=== PATIENT | female | born 1990 | race Caucasian/White ===

== ENCOUNTER 2022-09-13 15:06 | Outpatient (CLI) | payer MEDICAID, SELFPAY ==
[2022-09-13 15:24] VITALS: BP 122/84; PULSE 79; TEMP 36.7
[2022-09-13 15:28] VITALS: BP 122/84; PULSE 79
[2022-09-13 15:39] LABS: HCT 34.6 % (36.0-46.0); HGB 11.9 g/dL (11.2-15.7); MCHC 34.4 % (32.0-36.0); MCV 90 fL (80-95); MPV 10.9 fL (8.0-11.0); Platelet Count 238 10^3/uL (130-400); RBC 3.84 10^6/uL (3.93-5.22); RDW 13.1 % (11.7-14.6); RDW-SD 42.6 fL; WBC 10.15 10^3/uL (4.4-10.8)
[2022-09-13 15:56] LABS: ALT 17 U/L (14-59); AST 20 U/L (15-37); Albumin 2.6 g/dL (3.4-5.0); Alkaline Phosphatase 149 U/L (46-116); Anion Gap 11.6 mmol/L (3-11); BUN 6 mg/dL (7-18); Bilirubin, Total 0.2 mg/dL (0.2-1.0); CO2 21.4 mmol/L (21.0-32.0); CREATININE 0.5 mg/dL (0.55-1.02); Chloride 104 mmol/L (98-107); Estimated GFR 129.32 (mL/min/1.73m2); Glucose 70 mg/dL (74-106); Potassium 3.7 mmol/L (3.5-5.1); Sodium 137 mmol/L (136-145); Total Protein 6.6 g/dL (6.4-8.2); Uric Acid 5.3 mg/dL (2.6-6.0)
[2022-09-13 16:04] VITALS: BP 133/89; PULSE 76
--- NOTE | 2022-09-13 16:50 | W.OBNST ---
Date of service: 09/13/22 Time of Service: 16:50 NST Evaluation Reason for NST Reasons for Nonstress Test: GESTATIONAL HYPERTENSION Gestational Age Gestational Age in Weeks and Days: 39 Weeks and 1Days Test and Monitor Explained Test/Monitor Explained: Test Explained, Monitor Explained and Patient Verbalized Understanding Vital Signs Blood Pressure: 122/84 Pulse: 79 Temperature: 98.1 F NST Information Date on Monitor: 09/13/22 Time on Monitor: 15:28 Date off Monitor: 09/13/22 Time off Monitor: 16:20 Total Time on Monitor: 52 NST Interventions: None NST Evaluation Patient States Movement: Present FHR Baseline: 135 Variability: Moderate 6-25 bpm Accelerations: 15x15 NST Results: Reactive Note N/A NST Note Note: Elevated BP at the office visit today. trace to 1+ edema. To the Center for NST and BP checks. BP 120-130/86-89. preeclampsia labs WNL. trace of urine on dipstick. Instructed to return 09/16 for repeat NST and BP. Denies headache or epigastric pain. Signs of preeclampsia reviewed. NST Reviewed and Verified by: Sherin Morris
[2022-09-13 16:52] VITALS: BP 122/84; PULSE 79; TEMP 36.7
== END 2022-09-13 16:30 ==
LOC: BCD 15:10 → OBS 15:20
PROVIDERS: PCP Nurse Practitioner Family; Visit Provider Advanced Practice Midwife
DX: O13.3 Gestational [pregnancy-induced] hypertension without significant proteinuria, third trimester (principal); Z3A.39 39 weeks gestation of pregnancy
CPT/HCPCS: 59025; 80053; 85027; 86850; 86900; 86901; 84550

== ENCOUNTER 2022-09-13 18:36 | Outpatient (REF) | payer MEDICAID, SELFPAY ==
[2022-09-13 17:08] LABS: COMMENT (LAB VIEW ONLY) 100.63 mg/dL; PROTEIN 28.7 mg/dL; Prot/Crea Ur Ratio 0.28
[2022-09-13 17:13] LABS: *AMPHETAMINES SCREEN URINE Negative (Negative); *BARBITURATES SCREEN URINE Negative (Negative); *BENZODIAZEPINES SCREEN URINE Negative (Negative); Cannabinoids THC Negative (Negative); Cocaine Screen,Urine Negative (Negative); METHADONE URINE SCREEN Negative (Negative); OPIATES URINE SCREEN Negative (Negative)
[2022-09-13 17:17] LABS: Tricyclic Antidepressants Negative (Negative)
== END 2022-09-13 18:37 | disposition home or self-care (01) ==
LOC: LBN 18:36
PROVIDERS: PCP Nurse Practitioner Family; Visit Provider Advanced Practice Midwife
DX: O13.9 Gestational [pregnancy-induced] hypertension without significant proteinuria, unspecified trimester (principal); O99.323 Drug use complicating pregnancy, third trimester; F12.90 Cannabis use, unspecified, uncomplicated; Z3A.39 39 weeks gestation of pregnancy
CPT/HCPCS: 80307; 82565; 84156

== ENCOUNTER 2022-09-16 08:01 | Outpatient (CLI) | payer MEDICAID, SELFPAY ==
[2022-09-16 11:19] VITALS: BP 120/93; PULSE 86
[2022-09-16 11:42] LABS: HCT 34.3 % (36.0-46.0); HGB 11.5 g/dL (11.2-15.7); MCH 30.4 pg (27.0-33.0); MCHC 33.5 % (32.0-36.0); MCV 91 fL (80-95); MPV 10.5 fL (8.0-11.0); Platelet Count 219 10^3/uL (130-400); RBC 3.78 10^6/uL (3.93-5.22); RDW 13.1 % (11.7-14.6); RDW-SD 42.9 fL; WBC 8.65 10^3/uL (4.4-10.8)
[2022-09-16 11:57] VITALS: BP 123/86; PULSE 86
[2022-09-16 12:00] LABS: COMMENT (LAB VIEW ONLY) 41.33 mg/dL; PROTEIN 16.2 mg/dL; Prot/Crea Ur Ratio 0.39
[2022-09-16 12:06] LABS: ALT 15 U/L (14-59); AST 17 U/L (15-37); Albumin 2.4 g/dL (3.4-5.0); Alkaline Phosphatase 144 U/L (46-116); Anion Gap 9.9 mmol/L (3-11); BUN 6 mg/dL (7-18); Bilirubin, Total 0.2 mg/dL (0.2-1.0); CO2 23.1 mmol/L (21.0-32.0); CREATININE 0.5 mg/dL (0.55-1.02); Calcium 8.8 mg/dL (8.5-10.1); Chloride 105 mmol/L (98-107); Estimated GFR 129.32 (mL/min/1.73m2); Glucose 83 mg/dL (74-106); Potassium 4.1 mmol/L (3.5-5.1); Sodium 138 mmol/L (136-145); Total Protein 6.3 g/dL (6.4-8.2)
[2022-09-16 12:27] VITALS: BP 120/93; PULSE 86; TEMP 36.6
[2022-09-16 12:29] LABS: Uric Acid 5.3 mg/dL (2.6-6.0)
--- NOTE | 2022-09-16 12:31 | W.OBNST ---
Date of service: 09/16/22 Time of Service: 12:31 NST Evaluation Reason for NST Reasons for Nonstress Test: GESTATIONAL HYPERTENSION Gestational Age Gestational Age in Weeks and Days: 39 Weeks and 5Days Test and Monitor Explained Test/Monitor Explained: Test Explained, Monitor Explained and Patient Verbalized Understanding Vital Signs Blood Pressure: 120/93 Pulse: 86 Temperature: 97.9 F Urine Results Urine Protein: Positive Urine Ketones: Positive Urine Glucose: Negative Urine Blood: Negative NST Information Date on Monitor: 09/16/22 Time on Monitor: 11:03 Date off Monitor: 09/16/22 Time off Monitor: 12:08 Total Time on Monitor: 65 NST Interventions: PO Hydration and Notify Provider Contraction Frequency: Occasional NST Evaluation Patient States Movement: Present FHR Baseline: 150 Variability: Moderate 6-25 bpm Accelerations: 15x15 Decelerations: None NST Results: Reactive Note N/A NST Note Note: Janeth is here for BP check and NST. BP was elevated today and preeclampsia labs show elevated protein creatinene ratio of 0.38. IOL offered and Janeth agrees and that was scheduled for this evening, plan reviewed with Dr. Aquino NST Reviewed and Verified by: Sherin Morris
[2022-09-16 12:33] VITALS: BP 120/93; PULSE 86; TEMP 36.6
== END 2022-09-16 12:25 | disposition home or self-care (01) ==
LOC: BCD 08:02 → OBS 11:00
PROVIDERS: PCP Nurse Practitioner Family; Visit Provider Advanced Practice Midwife
DX: O13.3 Gestational [pregnancy-induced] hypertension without significant proteinuria, third trimester (principal); Z3A.39 39 weeks gestation of pregnancy
CPT/HCPCS: 59025; 36415; 80053; 85027; 82565; 84156; 84550

== ENCOUNTER 2022-09-16 18:44 | Inpatient (IN) | payer MEDICAID, SELFPAY ==
--- OUTSIDE RECORDS SUMMARY | 2022-09-16 14:29 | XMS_ITS | CCD ---
Author Name Unknown Address [address] [place] [address] [id number] Organization Unknown Address [address] [place] [address] [id number] Care Team Providers Care Salvage Mechanic Name Role Phone DAVID ROWLEY Attending Physician [phone] UNLISTED REQUESTED, PROVIDER - Er Physician 1 0 Vital Signs Unknown or Not Available. Allergies Allergy Code Allergy Type Reaction Status No Known Drug Allergies 0 No known drug allergies Active Procedures Unknown or Not Available. History of Immunizations Unknown or Not Available. Problems Unknown or Not Available. Results Unknown or Not Available. Active Medications Medication Code Dose Units Frequency Route Modificatio n Start Date/Time Metoclopramide 10MG Oral Tablet 388966 1 TABLET EVERY 8 HOURS ORAL 03/06/2022 15:17 Prescription Detail TAKE 1 TABLET ORAL EVERY 8 HOURS Medications Administered During Visit Unknown or Not Available. Encounters Unknown or Not Available. Social History Unknown or Not Available. Patient Decision Aids Unknown or Not Available. Discharge Instructions You were admitted to [facility] on 07/16/2022 21:13 You were discharged from [facility] on 07/16/2022 21:13 Should you have any questions prior to discharge, please contact a member of your healthcare team. If you have left the hospital and have any questions, please contact your primary care physician. Chief Complaint and Reason For Visit Chief Complaint Date of Onset RT HIP PAIN GENERATING INTO STOMACH 8MTH 07/16/2022 Function Status Unknown or Not Available. Plan of Care Unknown or Not Available. Referral/Transition of Care Unknown or Not Available.
--- OUTSIDE RECORDS SUMMARY | 2022-09-16 14:30 | XMS_ITS | CCD ---
Author Name Unknown Address [address] [place] [address] [id number] Organization Unknown Address [address] [place] [address] [phone] Care Team Providers Care Director Of Accounts Payable Name Role Phone October Attending Physician [phone] Vital Signs Unknown or Not Available. Allergies Allergy Code Allergy Type Reaction Status No Known Drug Allergies 0 No known drug allergies Active Procedures Unknown or Not Available. History of Immunizations Unknown or Not Available. Problems Unknown or Not Available. Results CULT URINE CULTURE* - [facility] Date/Time: 07/16/2022 16:05 Test Name Code Test Result Test Units Test Ref Rang e COLLECTION MODE: 25288-4 CLEAN CATCH N/A Active Medications Medication Code Dose Units Frequency Route Modificatio n Start Date/Time Metoclopramide 10MG Oral Tablet 006116 1 TABLET EVERY 8 HOURS ORAL 03/06/2022 15:17 Prescription Detail TAKE 1 TABLET ORAL EVERY 8 HOURS Medications Administered During Visit Unknown or Not Available. Encounters Encounter Diagnosis Diagnosis Code Start Date Other specified re lated conditions, third trimester [id number] 07/16/2022 Social History Unknown or Not Available. Patient Decision Aids Unknown or Not Available. Discharge Instructions You were admitted to [facility] on 07/16/2022 15:23 with a principal diagnosis of Other specified related conditions, third trimester You had the following tests done:CULT URINE CULTURE* You were discharged from [facility] on 07/16/2022 16:10 Should you have any questions prior to discharge, please contact a member of your healthcare team. If you have left the hospital and have any questions, please contact your primary care physician. Chief Complaint and Reason For Visit Unknown or Not Available. Function Status Unknown or Not Available. Plan of Care Unknown or Not Available. Referral/Transition of Care Unknown or Not Available.
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
[2022-09-16 21:32] VITALS: BP 136/95; PULSE 96
[2022-09-16 21:34] VITALS: BP 136/95; PULSE 96; RESP 16; TEMP 36.8; O2SAT 98
[2022-09-16 21:46] LABS: Source Nasal/Nares
[2022-09-16 21:55] LABS: HCT 34.8 % (36.0-46.0); HGB 11.8 g/dL (11.2-15.7); MCH 30.6 pg (27.0-33.0); MCHC 33.9 % (32.0-36.0); MCV 90 fL (80-95); MPV 11.2 fL (8.0-11.0); Platelet Count 249 10^3/uL (130-400); RBC 3.86 10^6/uL (3.93-5.22); RDW 13.1 % (11.7-14.6); RDW-SD 42.5 fL; WBC 10.86 10^3/uL (4.4-10.8)
[2022-09-16 22:16] LABS: COVID-19 PCR Negative (Negative)
[2022-09-16] MEDS: miSOPROStol 25 MCG TAB PO (22:32)
[2022-09-16 22:53] VITALS: BP 121/80; PULSE 89
[2022-09-16] MEDS: Zolpidem 5 MG TAB 10 MG PO (22:54)
[2022-09-16 22:59] LABS: ALT 18 U/L (14-59); AST 21 U/L (15-37); Albumin 2.7 g/dL (3.4-5.0); Alkaline Phosphatase 154 U/L (46-116); BUN 6 mg/dL (7-18); Bilirubin, Total 0.2 mg/dL (0.2-1.0); CREATININE 0.5 mg/dL (0.55-1.02); Chloride 103 mmol/L (98-107); Estimated GFR 129.32 (mL/min/1.73m2); Glucose 72 mg/dL (74-106); Sodium 137 mmol/L (136-145); Total Protein 6.3 g/dL (6.4-8.2)
[2022-09-17] VITALS (159 sets, daily range): BP systolic 101–133; BP diastolic 56–97; PULSE 75–125; TEMP 36.7; O2SAT 95–99; BMI 25.9
[2022-09-17] MEDS: miSOPROStol 25 MCG TAB PO ×2 (03:31→07:52)
--- NOTE | 2022-09-17 05:41 | W.PM.OBNL1 ---
Date of service: 09/17/22 Time of Service: 05:41 Contractions Monitor Mode: External Contraction Frequency(min): irreg Contraction Duration(sec): varied Intensity: Mild Fetus A Monitor: External (US) Heart Rate Baseline: 140 Presentation: Vertex Variability: Moderate (6-25 BPM) Categories: Category I Accelerations: 15 X 15 Decelerations: None Assessment and Plan Assessment and plan (1) Encounter for induction of labor: Status: Acute Assessment and plan: Rest encouraged. Will hold next dose due to census on the unit. Continue to assess BP and labor progress. (2) Preeclampsia: Status: Acute Objective Abnormal lab results 09/16/22 09/16/22 Range/Units 21:35 21:35 WBC 10.86 H (4.4-10.8) 10^3/uL RBC 3.86 L (3.93-5.22) 10^6/uL Hct 34.8 L (36.0-46.0) % MPV 11.2 H (8.0-11.0) fL Anion Gap 12.0 H (3-11) mmol/L BUN 6 L (7-18) mg/dL Creatinine 0.5 L (0.55-1.02) mg/dL Glucose 72 L (74-106) mg/dL Alkaline Phosphatase 154 H (46-116) U/L Total Protein 6.3 L (6.4-8.2) g/dL Albumin 2.7 L (3.4-5.0) g/dL Temp Pulse Resp BP Pulse Ox 98.3 F 92 H 16 103/71 98 09/16/22 21:34 09/17/22 05:28 09/16/22 21:34 09/17/22 05:28 09/16/22 21:34 Laboratory Results WBC 10.86 10^3/uL (4.4-10.8) H 09/16/22 21:35 RBC 3.86 10^6/uL (3.93-5.22) L 09/16/22 21:35 Hgb 11.8 g/dL (11.2-15.7) 09/16/22 21:35 Hct 34.8 % (36.0-46.0) L 09/16/22 21:35 MCV 90 fL (80-95) 09/16/22 21:35 MCH 30.6 pg (27.0-33.0) 09/16/22 21:35 MCHC 33.9 % (32.0-36.0) 09/16/22 21:35 RDW 13.1 % (11.7-14.6) 09/16/22 21:35 Plt Count 249 10^3/uL (130-400) 09/16/22 21:35 MPV 11.2 fL (8.0-11.0) H 09/16/22 21:35 Sodium 137 mmol/L (136-145) 09/16/22 21:35 Potassium 4.0 mmol/L (3.5-5.1) 09/16/22 21:35 Chloride 103 mmol/L (98-107) 09/16/22 21:35 Carbon Dioxide 22.0 mmol/L (21.0-32.0) 09/16/22 21:35 Anion Gap 12.0 mmol/L (3-11) H 09/16/22 21:35 BUN 6 mg/dL (7-18) L 09/16/22 21:35 Creatinine 0.5 mg/dL (0.55-1.02) L 09/16/22 21:35 Est GFR (CKD-EPI 2020) 129.32 (mL/min/1.73m2) 09/16/22 21:35 Glucose 72 mg/dL (74-106) L 09/16/22 21:35 Calcium 9.0 mg/dL (8.5-10.1) 09/16/22 21:35 Total Bilirubin 0.2 mg/dL (0.2-1.0) 09/16/22 21:35 AST 21 U/L (15-37) 09/16/22 21:35 ALT 18 U/L (14-59) 09/16/22 21:35 Alkaline Phosphatase 154 U/L (46-116) H 09/16/22 21:35 Total Protein 6.3 g/dL (6.4-8.2) L 09/16/22 21:35 Albumin 2.7 g/dL (3.4-5.0) L 09/16/22 21:35 COVID-19 Source Nasal/Nares 09/16/22 21:30 SARS-CoV-2 (PCR) Negative (Negative) 09/16/22 21:30 Patient ABO/Rh O Positive 09/16/22 21:35 Antibody Screen NEGATIVE 09/16/22 21:35 Subjective Interval history since last seen: Janeth has received 2 doses of misoprostol and has been sleeping well after taking ambien. BP 103/71 Results Hemoglobin/Hematocrit: Hgb 11.8 g/dL (11.2-15.7) 09/16/22 21:35 Hct 34.8 % (36.0-46.0) L 09/16/22 21:35 Abnormal Lab Findings: Abnormal Labs 09/16/22 09/16/22 21:35 21:35 WBC 10.86 H RBC 3.86 L Hct 34.8 L MPV 11.2 H Anion Gap 12.0 H BUN 6 L Creatinine 0.5 L Glucose 72 L Alkaline Phosphatase 154 H Total Protein 6.3 L Albumin 2.7 L
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
--- NOTE | 2022-09-17 15:39 | W.POCUS ---
Pocus Exam Limited OB Exam DATE OF EXAM:: 09/17/22 TIME OF EXAM:: 15:40 PROVIDER THAT PERFORMED THE STUDY: Sherin Morris IS THIS A REPEAT EXAM DURING THIS ENCOUNTER: No Type of Exam: Pelvic OB Trans Abdominal (confirm presentation) REASON FOR EXAM: other (presentation) indication: Presentation Exam Complete.
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
[2022-09-17] MEDS: Lactated Ringers 500 ML IV (15:55)
[2022-09-17] MEDS: Bupivacaine 0.25% Pres-Free 10 ML VIAL EP (16:06)
[2022-09-17] MEDS: fentaNYL 100 MCG/2 ML VIAL EP (16:07)
[2022-09-17] MEDS: FentaNYL/ROPIvacaine 2 mcg/ml and 0.1% 200 ML CADD Cassette EP (16:07)
--- NOTE | 2022-09-17 16:27 | W.ANESNEU ---
Epidural/Spinal Catheter Date Performed: 09/17/22 Procedure Start: 16:00 Procedure Stop: 16:37 Requesting Provider: Sherin Morris Procedure Location: Obstetrics Reason Performed: Labor Epidural Standard Monitors Applied: Blood Pressure, SpO2 and See EMR for corresponding vital signs Patient Position: Sitting Sedation Given (Indicate Dose Given): No Sedation given Patient Mental Status: Awake Sterility: Hand Hygiene, Surgical Cap, Surgical Mask, Sterile Gloves, Sterile Drape/Sheet and Chlorhexidine Procedure Location: L3-L4 Interspace Epidural Needle: Tuohy 18 Gauge Needle Length: 3.5 Inch Needle Approach: Midline Epidural Procedure: Skin Prepped, 1% Lidocaine to skin and subcutaneous tissue with 25G needle, Tuohy Needle placed, BRYAN to Saline Used, Epidural Catheter Placed, Negative Heme, Negative CSF Flow and Tuohy Needle Removed Catheter Placed?: Catheter Placed Test Dose (Indicate Dose Given): 3ml 1.5% Lidocaine with 1:200K Epinephrine Given and Negative Test Dose Loss of Resistance Depth (cm): 8 Catheter depth at skin (cm): 13 Dressing: [place] Dressing Placed and Mastisol Used Epidural Provider Bolus (Indicate Dose Given): Total bolus dose given in 3-5 ml divided doses and Total Bupivacaine 0.25% Given (ml) Dose:: 5 ml Additives (Indicate Dose Given ): Fentanyl PF Dose:: 100 mcg Infusion Medication: Medication Infusion Began Medication Infusion: Ropivacaine 0.1% with Fentanyl 2mcg/ml Maintenance Infusion Rate (ml/hour): 10 PCEA Bolus Dose (ml): 5 Post Procedure Pain score (0-10): 1 Block Level: N/A Paresthesia: None Ultrasound: Not Used Number of Attempts (See previous attempts in note section): 1 Procedure Tolerated: No Complications and Patient tolerated well Procedure Outcome: Successful Performed By: Hope Ruiz
[2022-09-17] MEDS: Lactated Ringers 1,000 ML 125 ML IV (16:29)
[2022-09-17] MEDS: miSOPROStol 50 MCG TAB PO (16:45)
--- NOTE | 2022-09-17 20:59 | W.PM.OBNL1 ---
Date of service: 09/17/22 Time of Service: 21:00 Pelvic Exam Dilation: 1 Effacement (%): 50 station: -1 Cervix Position: posterior Consistency: soft BISHOPS Score(Cervical Ripeness Score): 6 Contractions Monitor Mode: External Contraction Frequency(min): every 5 Contraction Duration(sec): 60 Intensity: Mild/Moderate Fetus A Monitor: External (US) Heart Rate Baseline: 130 Presentation: Vertex Variability: Moderate (6-25 BPM) Categories: Category I Accelerations: 15 X 15 Decelerations: None Amniotic Membrane Status: Intact Assessment and Plan Assessment and plan (1) Encounter for induction of labor: Status: Acute Assessment and plan: wyatt catheter placed an 300 cc clear urine out. will send urine for protein/creatinene ratio. Will insert cervidil for cervical ripening tonight and remove in the morning. Repeat preeclampsia labs ordered. Anticipate . rest encouraged. Objective Abnormal lab results 09/16/22 09/16/22 Range/Units 21:35 21:35 WBC 10.86 H (4.4-10.8) 10^3/uL RBC 3.86 L (3.93-5.22) 10^6/uL Hct 34.8 L (36.0-46.0) % MPV 11.2 H (8.0-11.0) fL Anion Gap 12.0 H (3-11) mmol/L BUN 6 L (7-18) mg/dL Creatinine 0.5 L (0.55-1.02) mg/dL Glucose 72 L (74-106) mg/dL Alkaline Phosphatase 154 H (46-116) U/L Total Protein 6.3 L (6.4-8.2) g/dL Albumin 2.7 L (3.4-5.0) g/dL Temp Pulse Resp BP Pulse Ox 98.0 F 114 H 16 127/82 97 09/17/22 20:29 09/17/22 20:59 09/16/22 21:34 09/17/22 20:23 09/17/22 20:56 Laboratory Results WBC 10.86 10^3/uL (4.4-10.8) H 09/16/22 21:35 RBC 3.86 10^6/uL (3.93-5.22) L 09/16/22 21:35 Hgb 11.8 g/dL (11.2-15.7) 09/16/22 21:35 Hct 34.8 % (36.0-46.0) L 09/16/22 21:35 MCV 90 fL (80-95) 09/16/22 21:35 MCH 30.6 pg (27.0-33.0) 09/16/22 21:35 MCHC 33.9 % (32.0-36.0) 09/16/22 21:35 RDW 13.1 % (11.7-14.6) 09/16/22 21:35 Plt Count 249 10^3/uL (130-400) 09/16/22 21:35 MPV 11.2 fL (8.0-11.0) H 09/16/22 21:35 Sodium 137 mmol/L (136-145) 09/16/22 21:35 Potassium 4.0 mmol/L (3.5-5.1) 09/16/22 21:35 Chloride 103 mmol/L (98-107) 09/16/22 21:35 Carbon Dioxide 22.0 mmol/L (21.0-32.0) 09/16/22 21:35 Anion Gap 12.0 mmol/L (3-11) H 09/16/22 21:35 BUN 6 mg/dL (7-18) L 09/16/22 21:35 Creatinine 0.5 mg/dL (0.55-1.02) L 09/16/22 21:35 Est GFR (CKD-EPI 2020) 129.32 (mL/min/1.73m2) 09/16/22 21:35 Glucose 72 mg/dL (74-106) L 09/16/22 21:35 Calcium 9.0 mg/dL (8.5-10.1) 09/16/22 21:35 Total Bilirubin 0.2 mg/dL (0.2-1.0) 09/16/22 21:35 AST 21 U/L (15-37) 09/16/22 21:35 ALT 18 U/L (14-59) 09/16/22 21:35 Alkaline Phosphatase 154 U/L (46-116) H 09/16/22 21:35 Total Protein 6.3 g/dL (6.4-8.2) L 09/16/22 21:35 Albumin 2.7 g/dL (3.4-5.0) L 09/16/22 21:35 COVID-19 Source Nasal/Nares 09/16/22 21:30 SARS-CoV-2 (PCR) Negative (Negative) 09/16/22 21:30 Patient ABO/Rh O Positive 09/16/22 21:35 Antibody Screen NEGATIVE 09/16/22 21:35 Subjective Interval history since last seen: Plan for early epidural reviewed with Dr Aquino who agreed. Janeth reported pain was 7 on the pain scale when epidural placed. Janeth received an epidural and rested well. Maternal pulse 90-121 after waking from a nap. BP 127/82 Results Hemoglobin/Hematocrit: Hgb 11.8 g/dL (11.2-15.7) 09/16/22 21:35 Hct 34.8 % (36.0-46.0) L 09/16/22 21:35 Abnormal Lab Findings: Abnormal Labs 09/16/22 09/16/22 21:35 21:35 WBC 10.86 H RBC 3.86 L Hct 34.8 L MPV 11.2 H Anion Gap 12.0 H BUN 6 L Creatinine 0.5 L Glucose 72 L Alkaline Phosphatase 154 H Total Protein 6.3 L Albumin 2.7 L
[2022-09-17] MEDS: Dinoprostone-CERVICAL 10 MG VSUPP VG (21:27)
[2022-09-17 21:33] LABS: HCT 32.4 % (36.0-46.0); HGB 11.1 g/dL (11.2-15.7); MCH 31.2 pg (27.0-33.0); MCHC 34.3 % (32.0-36.0); MCV 91 fL (80-95); MPV 11.2 fL (8.0-11.0); Platelet Count 221 10^3/uL (130-400); RBC 3.56 10^6/uL (3.93-5.22); RDW 13.1 % (11.7-14.6); RDW-SD 43.2 fL; WBC 7.96 10^3/uL (4.4-10.8)
[2022-09-17 21:43] LABS: COMMENT (LAB VIEW ONLY) 116.98 mg/dL; PROTEIN 31.9 mg/dL; Prot/Crea Ur Ratio 0.27
[2022-09-17 21:44] LABS: ALT 18 U/L (14-59); AST 17 U/L (15-37); Albumin 2.2 g/dL (3.4-5.0); Alkaline Phosphatase 137 U/L (46-116); Anion Gap 10.5 mmol/L (3-11); BUN 9 mg/dL (7-18); Bilirubin, Total 0.2 mg/dL (0.2-1.0); CO2 23.5 mmol/L (21.0-32.0); CREATININE 0.6 mg/dL (0.55-1.02); Calcium 9.1 mg/dL (8.5-10.1); Chloride 104 mmol/L (98-107); Estimated GFR 123.76 (mL/min/1.73m2); Glucose 101 mg/dL (74-106); Potassium 3.7 mmol/L (3.5-5.1); Sodium 138 mmol/L (136-145); Uric Acid 4.7 mg/dL (2.6-6.0)
[2022-09-17] MEDS: Lactated Ringers 1,000 ML 30 ML IV (22:16)
[2022-09-18] VITALS (465 sets, daily range): BP systolic 98–133; BP diastolic 55–103; PULSE 0–143; RESP 18; TEMP 36.7–37.1; O2SAT 92–99
[2022-09-18] MEDS: Zolpidem 5 MG TAB 10 MG PO (01:33)
[2022-09-18] MEDS: Ondansetron 4 MG/2 ML VIAL IVP ×2 (08:38→15:13)
[2022-09-18] MEDS: Lactated Ringers 1,000 ML 125 ML IV (08:39)
--- NOTE | 2022-09-18 10:02 | W.PM.OBNL1 ---
Date of service: 09/18/22 Time of Service: 10:02 Pelvic Exam Dilation: 2 Effacement (%): 50 station: -2 Cervix Position: posterior Consistency: soft BISHOPS Score(Cervical Ripeness Score): 6 Vaginal Exam Presentation: Vertex Contractions Monitor Mode: External Contraction Frequency(min): every 3-5 Contraction Duration(sec): 60 Intensity: Mild/Moderate Fetus A Monitor: External (US) Heart Rate Baseline: 130 Presentation: Vertex Variability: Moderate (6-25 BPM) Categories: Category I Accelerations: 15 X 15 Decelerations: None and Early Assessment and Plan Assessment and plan (1) Group B streptococcal carriage complicating : Status: Acute Assessment and plan: will start Penicillin for GBS prophylaxis (2) Encounter for induction of labor: Status: Acute Assessment and plan: Will start pitocin augmentation per protocol. zofran given IV with good effect for nausea. (3) Gestational hypertension: Status: Acute Assessment and plan: Continue to monitor BP readings and consider repeat labs this evening. Objective Abnormal lab results 09/17/22 09/17/22 Range/Units 21:12 21:12 RBC 3.56 L (3.93-5.22) 10^6/uL Hgb 11.1 L (11.2-15.7) g/dL Hct 32.4 L (36.0-46.0) % MPV 11.2 H (8.0-11.0) fL Alkaline Phosphatase 137 H (46-116) U/L Total Protein 6.0 L (6.4-8.2) g/dL Albumin 2.2 L (3.4-5.0) g/dL Temp Pulse Resp BP Pulse Ox 98.8 F 99 H 18 118/74 98 09/18/22 09:57 09/18/22 09:59 09/18/22 09:57 09/18/22 09:57 09/18/22 09:57 Laboratory Results WBC 7.96 10^3/uL (4.4-10.8) 09/17/22 21:12 RBC 3.56 10^6/uL (3.93-5.22) L 09/17/22 21:12 Hgb 11.1 g/dL (11.2-15.7) L 09/17/22 21:12 Hct 32.4 % (36.0-46.0) L 09/17/22 21:12 MCV 91 fL (80-95) 09/17/22 21:12 MCH 31.2 pg (27.0-33.0) 09/17/22 21: MCHC 34.3 % (32.0-36.0) 09/17/22 21:12 RDW 13.1 % (11.7-14.6) 09/17/22 21:12 Plt Count 221 10^3/uL (130-400) 09/17/22 21:12 MPV 11.2 fL (8.0-11.0) H 09/17/22 21:12 Sodium 138 mmol/L (136-145) 09/17/22 21:12 Potassium 3.7 mmol/L (3.5-5.1) 09/17/22 21: Chloride 104 mmol/L (98-107) 09/17/22 21: Carbon Dioxide 23.5 mmol/L (21.0-32.0) 09/17/22 21:12 Anion Gap 10.5 mmol/L (3-11) 09/17/22 21:12 BUN 9 mg/dL (7-18) 09/17/22 21:12 Creatinine 0.6 mg/dL (0.55-1.02) 09/17/22 21:12 Est GFR (CKD-EPI 2020) 123.76 (mL/min/1.73m2) 09/17/22 21:12 Glucose 101 mg/dL (74-106) 09/17/22 21:12 Uric Acid 4.7 mg/dL (2.6-6.0) 09/17/22 21:12 Calcium 9.1 mg/dL (8.5-10.1) 09/17/22 21:12 Total Bilirubin 0.2 mg/dL (0.2-1.0) 09/17/22 21:12 AST 17 U/L (15-37) 09/17/22 21:12 ALT 18 U/L (14-59) 09/17/22 21:12 Alkaline Phosphatase 137 U/L (46-116) H 09/17/22 21:12 Total Protein 6.0 g/dL (6.4-8.2) L 09/17/22 21:12 Albumin 2.2 g/dL (3.4-5.0) L 09/17/22 21:12 Ur Random Creatinine 116.98 mg/dL 09/17/22 21:15 U Random Total Protein 31.9 mg/dL 09/17/22 21:15 U [place] Prot/Creat Ratio 0.27 09/17/22 21:15 COVID-19 Source Nasal/Nares 09/16/22 21:30 SARS-CoV-2 (PCR) Negative (Negative) 09/16/22 21:30 Patient ABO/Rh O Positive 09/16/22 21:35 Antibody Screen NEGATIVE 09/16/22 21:35 Objective Narrative Objective Narrative: 1+ pitting pedal edema and labial edema noted. Serum preeclmpsia labs repeated last night and WNL with protein/creatinene ratio 0.27. BP 118/74 and has been in that range all night. Subjective Interval history since last seen: Janeth has been resting comfortably. She is feeling some vaginal pressure. She is experiencing nausea this morning. Results Hemoglobin/Hematocrit: Hgb 11.1 g/dL (11.2-15.7) L 09/17/22 21:12 Hct 32.4 % (36.0-46.0) L 09/17/22 21:12 Abnormal Lab Findings: Abnormal Labs 09/16/22 09/16/22 09/17/22 21:35 21:35 21:12 WBC 10.86 H RBC 3.86 L 3.56 L Hgb 11.1 L Hct 34.8 L 32.4 L MPV 11.2 H 11.2 H Anion Gap 12.0 H BUN 6 L Creatinine 0.5 L Glucose 72 L Alkaline Phosphatase 154 H Total Protein 6.3 L Albumin 2.7 L 09/17/22 21:12 WBC RBC Hgb Hct MPV Anion Gap BUN Creatinine Glucose Alkaline Phosphatase 137 H Total Protein 6.0 L Albumin 2.2 L
[2022-09-18] MEDS: FentaNYL/ROPIvacaine 2 mcg/ml and 0.1% 200 ML CADD Cassette EP (10:18)
[2022-09-18] MEDS: Penicillin G POT. 5,000,000 UNITS in Normal Saline 100 ML 200 UNITS IVPB (10:22)
[2022-09-18] MEDS: Oxytocin/Normal Saline 30 UNIT/500 ML BAG 2 UNITS IV (10:29)
[2022-09-18] MEDS: Calcium Carbonate *TUMS* 500 MG CHEW 1000 MG PO ×2 (11:51→15:35)
--- NOTE | 2022-09-18 13:17 | ANES.NEURP_ITS ---
Epidural/Spinal Daily Note Date Performed: 09/18/22 Assessment Time: 13:05 Patient Location: Obstetrics Catheter Type in Place: Epidural Catheter Dressing Assessment: Dressing intact with good adherence Catheter Assessment: Catheter Labeled and Intact and Functioning Previous Catheter Depth Noted (cm): 13 Current Catheter Depth (cm): 13 (Confirmed with RN, patient states she is re sting comfortably) Current Medication Infusion: Ropivacaine 0.1% with Fentanyl 2mcg/ml Current Maintenance Infusion Rate (ml/hour): 10 Current PCEA Bolus Dose (ml): 5 Current Pain Score (0-10): 0 Medication Infusion Stopped, Catheter Removal Planned: No New Bolus Given or Change in Infusion Made: No Completed By: Tracy Adhikari
[2022-09-18] MEDS: Lactated Ringers 1,000 ML 200 ML IV ×2 (14:07→18:11)
[2022-09-18] MEDS: Lactated Ringers 500 ML IV (14:15)
--- NOTE | 2022-09-18 15:10 | PGE_ITS ---
Date of service: 09/18/22 Time of Service: 15:10 Pelvic Exam Dilation: 8 Effacement (%): 100 station: +1 Cervix Position: anterior Consistency: soft Vaginal Exam Presentation: Vertex Comments: AROM performed for large amount of clear fluid Contractions Monitor Mode: External Contraction Frequency(min): every 3 min Contraction Duration(sec): 60 Intensity: Moderate/Strong Fetus A Monitor: External (US) Heart Rate Baseline: 120 Presentation: Vertex Variability: Moderate (6-25 BPM) Categories: Category I FHR Rhythm: Regular Accelerations: 15 X 15 Decelerations: Early Assessment Note: after a period of minimal variability, an IV bolus of 500 cc was administered with good effect. Assessment and Plan Assessment and plan (1) Encounter for induction of labor: Status: Acute Assessment and plan: anticipate . assist with pushing. Objective Abnormal lab results 09/17/22 09/17/22 Range/Units 21:12 21:12 RBC 3.56 L (3.93-5.22) 10^6/uL Hgb 11.1 L (11.2-15.7) g/dL Hct 32.4 L (36.0-46.0) % MPV 11.2 H (8.0-11.0) fL Alkaline Phosphatase 137 H (46-116) U/L Total Protein 6.0 L (6.4-8.2) g/dL Albumin 2.2 L (3.4-5.0) g/dL Temp Pulse Resp BP Pulse Ox 98.4 F 99 H 18 119/78 98 09/18/22 15:05 09/18/22 15:07 09/18/22 09:57 09/18/22 15:04 09/18/22 15:06 Laboratory Results WBC 7.96 10^3/uL (4.4-10.8) 09/17/22 21:12 RBC 3.56 10^6/uL (3.93-5.22) L 09/17/22 21:12 Hgb 11.1 g/dL (11.2-15.7) L 09/17/22 21:12 Hct 32.4 % (36.0-46.0) L 09/17/22 21:12 MCV 91 fL (80-95) 09/17/22 21:12 MCH 31.2 pg (27.0-33.0) 09/17/22 21:12 MCHC 34.3 % (32.0-36.0) 09/17/22 21:12 RDW 13.1 % (11.7-14.6) 09/17/22 21:12 Plt Count 221 10^3/uL (130-400) 09/17/22 21:12 MPV 11.2 fL (8.0-11.0) H 09/17/22 21:12 Sodium 138 mmol/L (136-145) 09/17/22 21:12 Potassium 3.7 mmol/L (3.5-5.1) 09/17/22 21:12 Chloride 104 mmol/L (98-107) 09/17/22 21:12 Carbon Dioxide 23.5 mmol/L (21.0-32.0) 09/17/22 21:12 Anion Gap 10.5 mmol/L (3-11) 09/17/22 21:12 BUN 9 mg/dL (7-18) 09/17/22 21:12 Creatinine 0.6 mg/dL (0.55-1.02) 09/17/22 21:12 Est GFR (CKD-EPI 2020) 123.76 (mL/min/1.73m2) 09/17/22 21:12 Glucose 101 mg/dL (74-106) 09/17/22 21:12 Uric Acid 4.7 mg/dL (2.6-6.0) 09/17/22 21:12 Calcium 9.1 mg/dL (8.5-10.1) 09/17/22 21:12 Total Bilirubin 0.2 mg/dL (0.2-1.0) 09/17/22 21:12 AST 17 U/L (15-37) 09/17/22 21:12 ALT 18 U/L (14-59) 09/17/22 21:12 Alkaline Phosphatase 137 U/L (46-116) H 09/17/22 21:12 Total Protein 6.0 g/dL (6.4-8.2) L 09/17/22 21:12 Albumin 2.2 g/dL (3.4-5.0) L 09/17/22 21:12 Ur Random Creatinine 116.98 mg/dL 09/17/22 21:15 U Random Total Protein 31.9 mg/dL 09/17/22 21:15 U [place] Prot/Creat Ratio 0.27 09/17/22 21:15 COVID-19 Source Nasal/Nares 09/16/22 21:30 SARS-CoV-2 (PCR) Negative (Negative) 09/16/22 21:30 Patient ABO/Rh O Positive 09/16/22 21:35 Antibody Screen NEGATIVE 09/16/22 21:35 Subjective Interval history since last seen: Pitocin was started and is running. Janeth felt pelvic pressure and was examined and found to be 8-9 cms with bulging membranes Results Hemoglobin/Hematocrit: Hgb 11.1 g/dL (11.2-15.7) L 09/17/22 21:12 Hct 32.4 % (36.0-46.0) L 09/17/22 21:12 Abnormal Lab Findings: Abnormal Labs 09/16/22 09/16/22 09/17/22 21:35 21:35 21:12 WBC 10.86 H RBC 3.86 L 3.56 L Hgb 11.1 L Hct 34.8 L 32.4 L MPV 11.2 H 11.2 H Anion Gap 12.0 H BUN 6 L Creatinine 0.5 L Glucose 72 L Alkaline Phosphatase 154 H Total Protein 6.3 L Albumin 2.7 L 09/17/22 21:12 WBC RBC Hgb Hct MPV Anion Gap BUN Creatinine Glucose Alkaline Phosphatase 137 H Total Protein 6.0 L Albumin 2.2 L
[2022-09-18] MEDS: Penicillin G POT. 3,000,000 UNITS in Normal Saline 50 ML 100 UNITS IVPB (15:13)
--- NOTE | 2022-09-18 19:35 | W.OBDELIVERY ---
Date of service: 09/18/22 Time of Service: 19:41 OB Labor/ Delivery Information Baby A Delivery Delivery Method: Spontaneaous Presentation: Vertex Cephalic Position: Vertex Vertex Position: Left Occipital Anterior Amniotic Fluid: Clear Estimated Blood Loss: 250 Delivery Outcome: Liveborn Complications: none Transferred: Remains with Mother Note: FHTs 120s during first stage of labor with early decellerations occurring after 8 cms dilation. Occasional periods of minimal variability. FHTs 120s in second stage with mod variability. Progressed to full dilation and began pushing. Second stage huddle was done. Spontaneous delivery of female infant delivered in DANTE position. A nuchal hand presented with the baby's head. Baby was placed on mother's abdomen and dried and stimulated. Spontaneous cry. Cord was clamped and cut by the baby's father. The placenta delivered spontaneously and appears to by intact with a three vessel cord. Pitocin 30u was administered IV after delivery of the placenta. The perineum was inspected and appears to be intact with a three vessel cord. The baby did breastfeed. After delivery, Mother and baby and father of the baby were stable and bonding well in the delivery room and there were no complications. preeclampsia labs will be drawn this evening. Will continue to monitor BP readings in the post period. Lu hilario GERARDO will assume her care post . a condyloma cluster was visualized on her left labia. I notified Janeth about it and she was unaware. Will plan to treat post . Providers Nurse Security Operations Specialist: Sherin Morris Nurse: Bryanna Estevez Labor/Delivery Information Number of Babies in Womb: 1 Steroids Given: None Reason Steroids Not Administered: N/A Group Beta Strep: Positive Antibiotics Administered: Yes Number of Doses of Antibiotics: 2 Rubella Status: Immune Blood Type: O+ Varicella Immunity: Immune Shoulder Dystocia: No Stages of Labor Onset of Labor Date: 09/18/22 Complete Dilatation Date: 09/18/22 Complete Dilatation Time: 15:59 ROM Baby A: 09/18/22 ROM Baby A: 14:44 ROM Total Time- Baby A: [id number] Delivery Date-Baby A: 09/18/22 Delivery Time-Baby A: 18:50 Labor Stage 2 Duration: 2 hours and 51 minutes Placenta Delivery Date-Baby A: 09/18/22 Placenta Delivery Time-Baby A: 19:01 Labor-Stage 3 Duration: 11 minutes Placenta Status: Delivered Baby A Infant Gender: Male Gestational Status: Term (39-41.6 wks) Gestational Age in Weeks/Days: 40 Weeks and 0 Days Score-1 Minute Interval(Baby A) Heart Rate-1 minute: 100 BPM or Greater Respiratory Effort- 1 minute: Spontaneous/Strong Cry Muscle Tone-1 minute: Minimal Flexion/Extension Reflex Response-1 minute: Prompt Response Color-1 minute: Bluish Hands or Feet Total Score-1 minute: 8 Score-5 Minute Interval(Baby A) Heart Rate- 5 minute: 100 BPM or Greater Respiratory Effort-5 minute: Spontaneous/Strong Cry Muscle Tone-5 minute: Active Movement Reflex Response-5 minute: Prompt Response Color-5 minute: Bluish Hands or Feet Total Score- 5 minute: 9
[2022-09-18 21:17] LABS: HGB 10.7 g/dL (11.2-15.7); MCH 30.8 pg (27.0-33.0); MCHC 34.5 % (32.0-36.0); MCV 89 fL (80-95); MPV 10.9 fL (8.0-11.0); Platelet Count 215 10^3/uL (130-400); RBC 3.47 10^6/uL (3.93-5.22); RDW-SD 42.5 fL; WBC 16.44 10^3/uL (4.4-10.8)
[2022-09-18] MEDS: Acetaminophen 325 MG TAB 650 MG PO (21:28)
[2022-09-18] MEDS: Ibuprofen 600 MG TAB PO (21:28)
[2022-09-18] MEDS: Dibucaine 1% 28 GM TUBE TP (21:29)
[2022-09-18] MEDS: Hamamelis Leaf/Glycerin 100 EACH BOX PR (21:30)
[2022-09-18 21:37] LABS: ALT 19 U/L (14-59); AST 30 U/L (15-37); Albumin 2.1 g/dL (3.4-5.0); Alkaline Phosphatase 130 U/L (46-116); Anion Gap 9.7 mmol/L (3-11); BUN 8 mg/dL (7-18); Bilirubin, Total 0.3 mg/dL (0.2-1.0); CO2 23.3 mmol/L (21.0-32.0); CREATININE 0.7 mg/dL (0.55-1.02); Calcium 8.6 mg/dL (8.5-10.1); Chloride 103 mmol/L (98-107); Estimated GFR 119.24 (mL/min/1.73m2); Glucose 84 mg/dL (74-106); Potassium 3.8 mmol/L (3.5-5.1); Sodium 136 mmol/L (136-145); Total Protein 5.6 g/dL (6.4-8.2)
[2022-09-19 00:30] VITALS: BP 114/79; PULSE 93; RESP 18; TEMP 36.6
[2022-09-19 05:05] VITALS: BP 129/80; PULSE 81; RESP 18; TEMP 36.6
[2022-09-19] MEDS: Acetaminophen 325 MG TAB 650 MG PO ×3 (06:23→20:55)
[2022-09-19] MEDS: Ibuprofen 600 MG TAB PO ×2 (06:23→15:39)
[2022-09-19 07:40] VITALS: BP 129/85; PULSE 87; RESP 18; TEMP 36.7; O2SAT 98
[2022-09-19 11:27] VITALS: BP 117/77; PULSE 92; RESP 18; TEMP 36.7; O2SAT 97
--- NOTE | 2022-09-19 14:13 | W.ANESPOSTOP ---
Postoperative Evaluation Date, Time and Location Date Performed: 09/19/22 Time Performed: 13:59 Patient Location: Obstetrics Vital Signs Most Recent Imported Vital Signs: Most Recent Vital Signs Temp Pulse Resp BP Pulse Ox 36.7 C 92 H 18 117/77 97 09/19/22 11:27 09/19/22 11:27 09/19/22 11:27 09/19/22 11:27 09/19/22 11:27 Pain Score Most Recent Pain Score: Most Recent Pain Score Pain Level 4 09/19/22 06:23 Assessment Mental Status: Awake (Alert & Oriented to Patient Baseline) Airway and Respiratory Function: Patent airway with normal (patient baseline) respiratory exam Cardiovascular Function: Hemodynamically Stable Hydration Status: Adequately Hydrated Nausea & Vomiting: No Nausea or Vomiting Pain: Pain is tolerable per patient Peripheral Nerve Block: Patient did not receive a nerve block
--- NOTE | 2022-09-19 16:42 | OBPPV_ITS ---
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 Subjective Subjective Patient comments: No complaints, Pain well controlled, Tolerating diet and Flatus present Patient's Mood: happy baby status: Doing well, Nursing well, Rooming in and Strong Bonding Observed feeding status: Exclusively breast feeding Exam Physical Exam Vital signs: Temp Pulse Resp BP Pulse Ox 98.1 F 92 H 18 117/77 97 09/19/22 11:27 09/19/22 11:27 09/19/22 11:27 09/19/22 11:27 09/19/22 11:27 Vital Signs Reviewed: Yes Constitutional Constitutional: no acute distress, average body habitus and cooperative HEENT Exam HEENT Exam: Normal Neck Exam Neck Exam: Normal Breast Exam Bilateral: Breast Exam: Normal and Soft Nipple Exam: Normal and Uninjured Respiratory Exam Respiratory Exam: Normal Cardiovascular Exam Cardiovascular Exam: Normal Abdominal Exam Abdomen: Other (soft, nontender) Fundal Exam Fundus: Below Umbilicus and Firm Rectal Exam Rectal Exam: Not Done Exam Perineum: Normal and Repair Intact Extremities Exam Extremity Exam: Normal Back/Spine/Pelvis Exam Back Exam: Normal Skin Exam Skin Exam: Normal Neurological Exam Neurological Exam: Normal Psychiatric Exam Psychiatric Exam: Normal Results Hemoglobin/Hematocrit: Hgb 10.7 g/dL (11.2-15.7) L 09/18/22 21:06 Hct 31.0 % (36.0-46.0) L 09/18/22 21:06 Abnormal Lab Findings: Abnormal Labs 09/16/22 09/16/22 09/17/22 21:35 21:35 21:12 WBC 10.86 H RBC 3.86 L 3.56 L Hgb 11.1 L Hct 34.8 L 32.4 L MPV 11.2 H 11.2 H Anion Gap 12.0 H BUN 6 L Creatinine 0.5 L Glucose 72 L Alkaline Phosphatase 154 H Total Protein 6.3 L Albumin 2.7 L 09/17/22 09/18/2209/18/23 21:12 21:06 21:06 WBC 16.44 H RBC 3.47 L Hgb 10.7 L Hct 31.0 L MPV Anion Gap BUN Creatinine Glucose Alkaline Phosphatase 137 H 130 H Total Protein 6.0 L 5.6 L Albumin 2.2 L 2.1 L
[2022-09-19 20:18] VITALS: BP 117/80; PULSE 95; TEMP 36.9
[2022-09-19] MEDS: Zolpidem 5 MG TAB 10 MG PO (22:17)
[2022-09-19] MEDS: Docusate Sodium 100 MG CAP PO (22:17)
[2022-09-20] MEDS: Ibuprofen 600 MG TAB PO ×2 (00:40→11:39)
[2022-09-20 00:59] VITALS: BP 117/79; PULSE 95; TEMP 36.6
[2022-09-20 10:00] VITALS: BP 133/87; PULSE 72; RESP 16; TEMP 36.6
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
== END 2022-09-20 12:10 | disposition home or self-care (01) | DRG 806 ==
PROVIDERS: Admitting Provider Advanced Practice Midwife; PCP Nurse Practitioner Family; Visit Provider Advanced Practice Midwife
DX: O14.94 Unspecified pre-eclampsia, complicating childbirth (principal); O98.32 Other infections with a predominantly sexual mode of transmission complicating childbirth; Z37.0 Single live birth; O99.824 Streptococcus B carrier state complicating childbirth; Z3A.39 39 weeks gestation of pregnancy; O99.344 Other mental disorders complicating childbirth; F41.9 Anxiety disorder, unspecified; O99.62 Diseases of the digestive system complicating childbirth; K59.00 Constipation, unspecified; Z14.1 Cystic fibrosis carrier; Z14.8 Genetic carrier of other disease; Z87.891 Personal history of nicotine dependence; F12.91 Cannabis use, unspecified, in remission; F43.10 Post-traumatic stress disorder, unspecified; A63.0 Anogenital (venereal) warts
CPT/HCPCS: 36415; 80053; 85027; 86850; 86900; 86901; 87635; 82565; 84156; 84550; J2405; J2540; J3010; J3490